=== PATIENT | male | born 1985 | race Caucasian/White ===

== ENCOUNTER → 2024-05-19 | Outpatient (CLI) | payer OTHER, SELFPAY ==
[2024-05-20 14:26] LABS: Cocci Serology, IgM Negative (Negative)
[2024-05-21 14:51] LABS: Cocci Serology, IgG Negative (Negative)
== END | disposition home or self-care (01) ==
LOC: COPL 10:59
PROVIDERS: PCP Nurse Practitioner Family; Referring Provider Nurse Practitioner Family; Visit Provider Nurse Practitioner Family
DX: B38.89 Other forms of coccidioidomycosis (principal)
CPT/HCPCS: 36415; 86331; 86635

== ENCOUNTER 2025-03-21 16:53 | Emergency (ER) | payer OTHER, SELFPAY ==
[2025-03-21 17:10] VITALS: BP 142/88; PULSE 81; RESP 18; TEMP 37.1; O2SAT 96; BMI 29.8
--- NOTE | 2025-03-21 17:20 | XR_ITS ---
Examination: CT abdomen and pelvis without contrast. Coronal 3-D reconstructions. Sagittal 2-D reconstructions. Date and time of exam: March 21, 2025, 1838 hours COMPARISON: November 01, 2022 INDICATIONS: Flank pain 1 week on the right, history kidney stones CTDI: vol (mGy): 9.19 DLP: (mGycm): 596 Technique: Axial images of the abdomen have been obtained, 3 mm slice thickness Intravenous contrast material has not been administered. Low dose protocols were performed. One or more of the following dose reduction techniques were used; automated exposure control, adjustment of the mA and/or KV according to patient size, use of iterative reconstruction technique. Findings: No focal liver or splenic lesion Contracted gallbladder No pancreatic or adrenal mass 2 mm left renal calculus, no hydronephrosis or ureteral calculi Aorta normal size Normal appendix No bowel obstruction No diverticulitis Normal seminal vesicles Normal size prostate No bladder mass or bladder calculi IMPRESSION: 2 mm lower pole nonobstructing left renal calculus No hydronephrosis or ureteral calculi Normal appendix No bladder mass or bladder calculi
[2025-03-21 17:44] LABS: Collection Type, Urine Clean Catch; Squamous Epithelial Cell,Urine 0 /hpf (0-5)
[2025-03-21 17:46] LABS: Basophils # (Auto) 0.1 Thou/mm3 (0.0-0.2); Basophils % (Auto) 1 % (0-2.5); Eosinophils # (Auto) 0.5 Thou/mm3 (0.0-0.5); Eosinophils % (Auto) 6 % (0-10); Hematocrit 48.7 % (41.0-53.0); Hemoglobin 16.5 g/dL (13.5-16.0); Immature Granulocytes Auto 0.03 Thou/mm3 (0.00-0.00); Lymphocytes # (Auto) 1.8 Thou/mm3 (1.0-4.8); Lymphocytes % (Auto) 19 % (10-50); Mean Corpuscular HGB Conc 33.9 g/dl (31.0-37.0); Mean Corpuscular Hemoglobin 29.0 pg (25.0-35.0); Mean Corpuscular Volume 86 fL (80-100); Monocytes # (Auto) 1.0 Thou/mm3 (0.0-0.8); Monocytes % (Auto) 10 % (0-12); Neutrophils # (Auto) 6.1 Thou/mm3 (1.8-7.7); Neutrophils % (Auto) 64 % (37-80); Nucleated Red Blood Cell # 0.00 Thou/mm3 (0.00-0.00); Nucleated Red Blood Cell % 0 /100 WBC (0); Platelet Count 237 Thou/mm3 (140-440); RDW Standard Deviation 41.0 fL (35.1-43.9); Red Blood Count 5.68 Miln/mm3 (4.50-5.90); White Blood Count 9.4 Thou/mm3 (3.8-10.6)
[2025-03-21 18:07] LABS: Alanine Aminotransferase 51 U/L (10-49); Albumin, Serum 4.9 gm/dL (3.5-5.0); Albumin/Globulin Ratio 1.9 (1.2-2.2); Alkaline Phosphatase 105 U/L (46-116); Anion Gap 8 (7-16); Aspartate Amino Transferase 29 U/L (0-34); BUN/Creatinine Ratio 12 Ratio (12-20); Bilirubin,Total 0.4 mg/dL (0.3-1.2); Blood Urea Nitrogen 14 mg/dL (9-23); Calcium 9.2 mg/dL (8.3-10.6); Calcium (Corrected) 9.2 mg/dL (8.5-10.1); Carbon Dioxide 28.9 mMol/L (20.0-31.0); Chloride 104 mMol/L (98-107); Creatinine (Component) 1.2 mg/dL (0.6-1.3); Estimated Creatinine Clearance 100.1 mL/min (>60); Globulin 2.6 gm/dL (2.3-3.5); Glucose 142 mg/dL (74-106); Lipase 42 U/L (12-53); Osmolality,Calculated 283 (275-295); Potassium 4.0 mMol/L (3.4-5.1); Sodium 141 mMol/L (136-145); Total Protein 7.5 gm/dL (5.7-8.2); eGFR > 60 See Note
[2025-03-21 18:17] LABS: Bilirubin,Urine Negative (Negative); Blood,Urine 1+ (Negative); Clarity,Urine Clear (Clear/Hazy); Color,Urine Yellow (Lt Yel-Yel); Glucose, Urine Negative (Negative); Ketones,Urine Negative (Negative); Leukocyte Esterase,Urine Negative (Negative); Nitrite,Urine Negative (Negative); PH,Urine 6.0 (5.0-7.0); Protein,Urine Trace (Neg - Trace); RBC,Urine 4 /hpf (0-3); Specific Gravity,Urine 1.030 (1.001-1.035); Urobilinogen,Urine Negative mg/dL (0.0-1.0); WBC,Urine 1 /hpf (0-5)
[2025-03-21] MEDS: SODIUM CHLORIDE 0.9% 1000 ML 1,000 ML 999 ML IV (19:38)
[2025-03-21] MEDS: ONDANSETRON INJ 2 MG/ML INJ 2 ML 4 MG IVP (19:40)
[2025-03-21] MEDS: KETOROLAC INJ 30 MG/ML VIAL IVP (19:40)
--- NOTE | 2025-03-21 19:44 | PD.EDABDPN ---
ED Abdominal Pain RME/HPI General Chief Complaint: Abdominal Pain Stated complaint: SEVERE ABD PAIN (8/10) Time seen by provider: 03/21/25 16:57 Arrival date/time: 03/21/25 16:53 This is a case of 40-year-old male who have history of multiple kidney stone with stent came in in the emergency room due to both lower abdominal pain radiating to both flanks with nausea and vomiting with persistence of the symptoms this patient decided to sought consult here in the emergency room Limitations: no limitations Related Data Home Medications ?Medication ?Instructions ?Recorded ?Confirmed albuterol sulfate 90 mcg/actuation 2 puff inhalation .PRN PRN Pain, 10/10/19 09/04/20 aerosol inhaler Severe fluticasone furoate 200 1 inh inhalation QDAY 10/10/19 09/04/20 mcg-vilanterol 25 mcg/dose inhalation powder (Breo Ellipta) cetirizine 10 mg tablet (Zyrtec) 10 mg PO QDAY 10/11/19 09/04/20 celecoxib 100 mg capsule (Celebrex) 100 mg PO BID 05/08/20 09/04/20 Previous Rx's ?Medication ?Instructions ?Recorded hydrocodone 7.5 mg-acetaminophen 1 tab PO Q6H PRN pain #16 tabs 11/01/22 325 mg tablet naproxen 500 mg tablet (Naprosyn) 500 mg PO BID PRN pain, moderate 11/01/22 #20 tabs hydrocodone 5 mg-acetaminophen 325 1 tab PO Q6H PRN pain #16 tabs 03/21/25 mg tablet ondansetron 4 mg disintegrating 4 mg PO Q8H #20 tabs 03/21/25 tablet tamsulosin 0.4 mg capsule (Flomax) 0.4 mg PO QDAY #10 caps 03/21/25 Allergies Allergy/AdvReac Type Severity Reaction Status Date / Time No Known Allergies Allergy Verified 03/21/25 16:55 Review of Systems Review of Systems Systems Reviewed: All systems reviewed, normal except as documented Constitutional Constitutional: Reports system reviewed and no additional complaints, except as documented and Reports as per HPI ENT Ears, Nose, Mouth, and Throat: Denies dysphagia and Denies odynophagia Cardiovascular Cardiovascular: Reports system reviewed and no additional complaints, except as documented and Reports as per HPI Respiratory Respiratory: Reports system reviewed and no additional complaints, except as documented and Reports as per HPI Gastrointestinal Gastrointestinal: Reports system reviewed and no additional complaints, except as documented, Reports abdominal pain, Denies belching, Denies bloating, Denies change in bowel habits, Denies change in stool character, Denies coffee ground emesis, Denies constipation, Denies cramping, Denies diarrhea, Denies dyspepsia, Denies dysphagia, Reports early satiety, Denies excessive flatus, Denies fecal incontinence, Denies heartburn, Denies hematemesis, Denies hematochezia, Denies loose stools, Denies melena, Reports nausea, Denies odynophagia, Denies tenesmus and Reports vomiting Genitourinary Genitourinary: Reports system reviewed and no additional complaints, except as documented and Reports as per HPI Neurologic Neurologic: Reports system reviewed and no additional complaints, except as documented and Reports as per HPI Past Medical History Past Medical History NEUROLOGIC: Negative Neurological Disorders or Seizures CARDIAC: Negative Cardiac Disorders, Congestive Heart Failure, Edema or Cellulitis RESPIRATORY: Positive Asthma (USES INHALER); Negative Chronic Obstructive Pulmonary Disease (COPD), Tuberculosis or Sleep Apnea GASTROINTESTINAL: Negative Gastrointestinal Disorders or Hepatitis GENITOURINARY: Positive Genitourinary Disorders and Kidney Stones; Negative Renal Disease MUSCULOSKELETAL: Negative Musculoskeletal Disorders ENDOCRINE: Negative Endocrine Disorders, Diabetes Mellitus Type 1 or Diabetes Mellitus Type 2 HEMATOLOGIC: Negative Blood Disorders OTHER HISTORY: Positive Hospitalization (HOSP FOR ASTHMA) and Chicken Pox; Negative Autoimmune Disease, Shingles, Falls, Blood Transfusions, Blood Transfusion Reaction, Anesthesia Reactions, Chemotherapy, Radiation Therapy, MRSA, Measles, Mumps or Cancer Family History FAMILY HISTORY: Positive Family Psychiatric Problems (MOTHER,FATHER,SISTER (DEPRESSION)) and Family Surgery (MOTHER); Negative Family Respiratory Disorders, Family Cardiac Disorders, Family Gastrointestinal Problems, Family Cancer or Family Anesthesia Reaction Surgical History SURGICAL: Positive Nose Surgery; Negative Pacemaker Social History SMOKING STATUS: Never smoker ED Exam General Limitations: Present no limitations General appearance: Present alert, in no apparent distress and other (Patient is awake alert oriented not in distress nontoxic looking well-hydrated well nourished) Head Head exam: Present atraumatic, normocephalic and normal inspection Eye Eye exam: Present normal appearance, PERRL and EOMI ENT ENT exam: Present normal exam, normal oropharynx and mucous membranes moist Neck Neck exam: Present normal inspection, full ROM and trachea midline; Absent tenderness, meningismus, lymphadenopathy or thyromegaly Chest Chest inspection: Present normal inspection and symmetric chest wall rise; Absent tenderness Respiratory Respiratory exam: Present normal lung sounds bilaterally; Absent respiratory distress, wheezes, stridor, accessory muscle use or prolonged expiratory phase Cardiovascular Cardiovascular exam: Present regular rate, normal rhythm and normal heart sounds; Absent bradycardia, tachycardia, irregular rhythm, systolic murmur or diastolic murmur Abdominal Exam Abdominal exam: Present soft, tenderness (Mild tenderness both lower abdomen and both flank but no CVA tenderness bladder is not distended nor tender) and normal bowel sounds; Absent distention, guarding, rebound, rigidity, diminished bowel sounds, hyperactive bowel sounds, hypoactive bowel sounds, organomegaly, psoas sign, Armstrong's sign, Rovsing's sign, tenderness at McBurney's Point, ascites or hernia Extremities Exam Extremities exam: Present normal inspection and full ROM Back Exam Back exam: Present normal inspection and full ROM Neurological Exam Neurological exam: Present alert, oriented X3, CN II-XII intact, normal gait and reflexes normal; Absent motor sensory deficit Psychiatric Psychiatric exam: Present normal affect and normal mood Skin Skin exam: Present warm, dry, intact, normal color and other (Excellent skin turgor) Course Quality Measures none Orders Category Date Time Status IV [Insert IV] NOW Care 03/21/25 19:[address] abdomen pelvis wo con Stat Exams 03/21/25 17:20 Completed CBC Stat Lab 03/21/25 17:31 Completed Comprehensive Metabolic Panel Stat Lab 03/21/25 17:31 Completed Lipase Stat Lab 03/21/25 17:31 Completed Urinalysis Stat Lab 03/21/25 17:35 Completed Ketorolac Inj [Toradol Inj] Med 03/21/25 19:01 Discontinued 30 mg IVP X1 ONE Morphine* Inj Med 03/21/25 19:02 Discontinued 4 mg IVP X1 ONE Ondansetron Inj [Zofran Inj] Med 03/21/25 19:01 Discontinued 4 mg IVP X1 ONE Sodium Chloride 0.9% 1000 ml [Ns] 1,000 ml Med 03/21/25 19:01 Active IV 999 mls/hr Tamsulosin HCl [Flomax] Med 03/21/25 19:01 Discontinued 0.4 mg PO X1 ONE Vital Signs Vital signs: Vital Signs Temperature 98.8 F 03/21/25 17:10 Pulse Rate 81 03/21/25 17:10 Respiratory Rate 18 03/21/25 17:10 Blood Pressure 142/88 H 03/21/25 17:10 Pulse Oximetry (%) 96 03/21/25 17:10 Oxygen Delivery Method Room Air 03/21/25 17:10 Oxygen saturation is 96% in room air normal Abdominal Pain MDM MDM Narrative MDM Narrative:: This is a case of 40-year-old male who have history of multiple kidney stone with stent came in in the emergency room due to both lower abdominal pain radiating to both flanks with nausea and vomiting with persistence of the symptoms this patient decided to sought consult here in the emergency room physical examination patient is awake alert oriented not in distress nontoxic looking well-hydrated well-nourished excellent skin turgor abdominal exam noted bilateral tenderness mild on both lower abdomen and both flank but no CVA tenderness bladder is not distended not tender no guarding no rebound no rigidity negative psoas negative straight or negative Rovsing's negative McBurney's negative Armstrong sign negative CVA tenderness no signs and symptoms of sepsis no signs and symptoms of dehydration blood test showed no leukocytosis no anemia kidney and liver function is normal no electrolyte imbalance lipase are normal urinalysis is normal CT scan showed a kidney stone on the left kidney based on my physical examination and history patient have kidney stone on the left patient was given bolus of normal saline morphine and Toradol for pain Zofran for nausea vomiting after 1 hour patient was reassessed patient condition improved and resolved he was advised to follow-up with PCP in 2 days for reevaluation and to be referred to urologist for further evaluation and treat meant of kidney stone for any worsening symptoms or any emergent concern return precaution in the ER is advised Patient was discharged with comfortable condition walking with stable gait. Patient verbalized no further complains explained diagnosis and answered patient question. Patient is comfortable with the proposed management plan including the need to follow up with his/her primary care physician and any specialist if applicable Discussed patient for any urgent condition or worsening sx, He/She needed to go to emergency room immediately or call 911. Patient acknowledge the responsibility to follow up as instructed and to monitor her/his symptoms. For any persistence of the symptoms for more than 3-5 days return precaution advised. Discussed the result of the test and was given printed discharge instruction Patient data External records reviewed:: [facility] previous records Clinical information provided by:: patient Social determinants that could affect healthcare access:: none Patient has the following chronic illnesses:: none How is presenting disease/condition affected by chronic disease/condition?: no chronic disease Evaluation data The following diagnostics were reviewed and interpreted by me:: lab results and radiology exam(s) Lab and/or radiology exams considered but not ordered:: reviewed Interpretation Summary: reviewed Medications / Prescriptions Medications or Prescriptions considered but not ordered:: given Medication administrations:: Medication Administration History Sodium Chloride (Ns) 1,000 mls @ 999 mls/hr IV .Q1H1M ONE Stop: 03/21/25 20:01 Last Admin: 03/21/25 19:38 Dose: 999 mls/hr Documented By: CVL Discontinued Medications Ketorolac Tromethamine (Ketorolac Inj 30 Mg/Ml Vial) 30 mg IVP X1 ONE Stop: 03/21/25 19:02 Last Admin: 03/21/25 19:40 Dose: 30 mg Documented By: CVL Morphine Sulfate (Morphine Sulf Inj 4 Mg/Ml Vial) 4 mg IVP X1 ONE Stop: 03/21/25 19:03 Ondansetron HCl (Ondansetron Inj 2 Mg/Ml Inj 2 Ml) 4 mg IVP X1 ONE; Protocol Stop: 03/21/25 19:02 Last Admin: 03/21/25 19:40 Dose: 4 mg Documented By: CVL Tamsulosin HCl (Tamsulosin Hcl 0.4 Mg Capsule) 0.4 mg PO X1 ONE Stop: 03/21/25 19:02 given Consultations Consultation(s) initiated? (list below): No Diagnosis Differential diagnosis abdominal pain: abdominal pain, acute appendicitis, calculus of kidney, diverticulitis, gastroenteritis, pancreatitis and small bowel obstruction Most likely diagnosis given after review of the tests above:: nephrolithiasis Admission Indicated Admission indicated?: not indicated Explain why admission is indicated or not indicated:: not indicated Admission Request Was there a request for admission?: No Admission Attestation Admission request attestation: not indicated Disposition Plan Disposition Plan: Discharge Discharge Attestation Discharge Attestation: The patient and all family members were given an opportunity to ask questions and understood the discharge instructions. Discharge instructions specifically effects, indications for sooner follow up or return to the emergency department, and the expected course of current diagnosis. Patient condition: Stable Discharge Plan Plan Patient Disposition: HOME (Self Care) Patient condition on transfer: Stable Prescriptions/Referrals Prescriptions/Med Rec: New hydrocodone-acetaminophen 5-325 mg tablet 1 tab PO Q6H MDD max 4 tabs per day PRN (Reason: pain) Qty: 16 0RF tamsulosin [Flomax] 0.4 mg capsule 0.4 mg PO QDAY Qty: 10 0RF ondansetron 4 mg tablet,disintegrating 4 mg PO Q8H Qty: 20 0RF No Action Breo Ellipta 200-25 mcg/dose blister with device 1 inh IH QDAY albuterol sulfate 90 mcg/actuation HFA aerosol inhaler 2 puff IH .PRN PRN (Reason: Pain, Severe) cetirizine [Zyrtec] 10 mg Tablet 10 mg PO QDAY celecoxib [Celebrex] 100 mg Capsule 100 mg PO BID hydrocodone-acetaminophen 7.5-325 mg tablet 1 tab PO Q6H MDD 4 PRN (Reason: pain) Qty: 16 0RF naproxen [Naprosyn] 500 mg tablet 500 mg PO BID PRN (Reason: pain, moderate) Qty: 20 0RF Referrals: NÉSTOR MORELOS [Primary Care Provider] - In 1 week Problem List Clinical Impression: Abdominal pain, Nephrolithiasis Patient/Caregiver Discharge Instructions Education Materials: Abdominal Pain, Kidney Stones Your Evaluation Additional Instructions: Follow-up with your primary care physician in 2 days for reevaluation and to be referred to urologist for further evaluation and treatment of your kidney stone recurrence persistent worsening symptoms or any emergent concern call 911 or go to the nearest emergency room take your medication as directed increase water intake keep hydrated Pedialyte Gatorade for hydration is adsvied Print Language: Cypriot Stand Alone Forms: Madelaine Award Info., Patient Portal Info Letter PA/SANDRA Supervising Physician PA/SANDRA Supervising Physician: Dr murray
[2025-03-21] MEDS: TAMSULOSIN HCL 0.4 MG CAPSULE PO (19:46)
[2025-03-21] MEDS: MORPHINE SULF INJ 4 MG/ML VIAL IVP (19:47)
[2025-03-21 20:33] VITALS: RESP 18
== END 2025-03-21 20:33 | disposition home or self-care (01) ==
PROVIDERS: Nurse Practitioner Family; Emergency Provider Emergency Medicine; PCP Nurse Practitioner Family
DX: N20.0 Calculus of kidney (principal)
CPT/HCPCS: 36415; 74176; 80053; 81001; 83690; 85025; 96361; 96374; 96375; 99284; J1885; J2270; J2405; J7030; A9270